=== PATIENT | male | born 1950 | race Caucasian/White ===

== ENCOUNTER 2018-01-01 07:50 | Day surgery (SDC) | payer OTHER ==
[~2018-01-01] VITALS: Ht 162.6 cm; Wt 54.4 kg
[~2018-01-01 07:50] MED LIST: ALBU90OI INH; BUDE6HFA INH; CHOL10002 PO; LISI5 PO; Megestrol Aceta40 MG PO; Norco 10-325 T1 EACH PO; Prozac20 MG PO
== END 2018-01-01 23:07 | disposition home or self-care (01) ==
LOC: ORSCMMR 07:50 → ORD 09:30 → ORSCMMR 09:30
PROVIDERS: Surgery
PROC: 0YU60JZ Supplement Left Inguinal Region with Synthetic Substitute, Open Approach (ICD-10-PCS; principal; 2018-01-01 09:30)
DX: K40.90 Unilateral inguinal hernia, without obstruction or gangrene, not specified as recurrent (principal); I10 Essential (primary) hypertension; J44.9 Chronic obstructive pulmonary disease, unspecified; Z79.899 Other long term (current) drug therapy
CPT/HCPCS: C1781; J0690; J2250; J2370; J2405; J3010; J7120